=== PATIENT | male | born 1980 | race Caucasian/White ===

== ENCOUNTER 2016-10-22 21:48 | Emergency (ER) | payer BC, OTHER ==
[2016-10-22] MEDS ORDERED: SODIUM CHLORIDE 0.9% 1,000 ML IV STA (22:34)
[2016-10-22] MEDS ORDERED: RX INFO: IV CONTRAST WAS GIVEN 1 EACH MISC MISCELLANE PRN (22:51)
--- NOTE | 2016-10-22 23:01 | ED ---
Abdominal Pain HPI - General Chief Complaint: Abdominal Pain Stated Complaint: abdominal pain Time Seen by Provider: 10/22/16 22:34 Source: patient, RN notes reviewed Mode of arrival: ambulatory Limitations: no limitations - History of Present Illness Initial Comments: 36-year-old male presents emergency Department with chief complaint of abdominal pain. Patient states started earlier today and has progressively getting worse. He states it does wax and wane though. Patient states provides of left-sided his abdomen. This felt slightly nauseated no vomiting. Patient states that he had a bowel movement earlier today though is not passing any gas or stool after that. Patient states he does feel that he is very gassy. Patient denies fever, chills, chest pain, shortness of breath. Patient states that movement does make it worse at this time. Patient's had no prior scope including EGD or colonoscopy. Patient had no prior abdominal surgeries. - Related Data Home Medications Medication Instructions Recorded Confirmed Lisinopril [Zestril] 10 mg PO BID 07/15/15 10/22/16 Metoprolol Tartrate [Lopressor] 25 mg PO BID 07/15/15 10/22/16 Cholecalciferol [Vitamin D3] 1,000 unit PO DAILY 10/22/16 10/22/16 Garlic 1 tab PO DAILY 10/22/16 10/22/16 [place]-3 Fatty Acids/Fish Oil [Fish 1 cap PO DAILY 10/22/16 10/22/16 Oil 1,000 mg Softgel] Vortioxetine Hydrobromide 10 mg PO DAILY 10/22/16 10/22/16 [Trintellix] Previous Rx's Medication Instructions Recorded Hydrocodone/Acetaminophen [[place] 1 tab PO Q6HR PRN #20 tab 10/23/16 5-325] Omeprazole 40 mg PO DAILY #30 capsule. 10/23/16 Ondansetron Odt [Zofran Odt] 4 mg PO Q8HR PRN #10 tab 10/23/16 Allergies Allergy/AdvReac Type Severity Reaction Status Date / Time No Known Allergies Allergy Verified 10/22/16 22:55 Review of Systems ROS Statement: Those systems with pertinent positive or pertinent negative responses have been documented in the HPI. ROS Other: All systems not noted in ROS Statement are negative. Past Medical History Past Medical History: Coronary Artery Disease (CAD), Chest Pain / Angina, Hyperlipidemia History of Any Multi-Drug Resistant Organisms: None Reported Past Surgical History: Orthopedic Surgery Past Psychological History: No Psychological Hx Reported Smoking Status: Never smoker Past Alcohol Use History: Daily Past Drug Use History: None Reported General Exam Limitations: no limitations General appearance: alert, in no apparent distress Head exam: Present: atraumatic, normocephalic, normal inspection Neck exam: Present: normal inspection. Absent: tenderness, meningismus, lymphadenopathy Respiratory exam: Present: normal lung sounds bilaterally. Absent: respiratory distress, wheezes, rales, rhonchi, stridor Cardiovascular Exam: Present: regular rate, normal rhythm, normal heart sounds. Absent: systolic murmur, diastolic murmur, rubs, gallop, clicks GI/Abdominal exam: Present: soft, tenderness (Moderate left-sided abdominal tenderness), normal bowel sounds. Absent: distended, guarding, rebound, rigid Back exam: Absent: CVA tenderness (R), CVA tenderness (L) Neurological exam: Present: alert, oriented X3, CN II-XII intact Skin exam: Present: warm, dry, intact, normal color. Absent: rash Course Vital Signs 10/22/16 10/23/16 22:26 00:03 Temperature 98.2 F 98.9 F Pulse Rate 78 60 Respiratory 18 20 Rate Blood Pressure 154/105 130/85 O2 Sat by Pulse 98 100 Oximetry Medical Decision Making - Medical Decision Making 36-year-old male present emergency department for abdominal pain. Patient's CT shows duodenitis. There is no evidence of acute pancreatitis. Patient does complain of some GERD-like symptoms and there is concern of possible early ulcer. Patient was started on omeprazole 40 mg once daily. Patient will follow -up with Dr. iverson for EGD. Return parameters were discussed. - Lab Data Result diagrams: 10/22/16 23:06 10/22/16 23:06 Lab Results 10/22/16 10/22/16 10/22/16 Range/Units 23:06 23:06 23:06 WBC 7.4 (3.8-10.6) k/uL RBC 4.45 (4.30-5.90) m/uL Hgb 14.4 (13.0-17.5) gm/dL Hct 39.2 (39.0-53.0) % MCV 88.2 (80.0-100.0) fL MCH 32.3 (25.0-35.0) pg MCHC 36.7 (31.0-37.0) g/dL RDW 12.6 (11.5-15.5) % Plt Count 241 (150-450) k/uL Neutrophils % 64 % Lymphocytes % 24 % Monocytes % 7 % Eosinophils % 2 % Basophils % 1 % Neutrophils # 4.8 (1.3-7.7) k/uL Lymphocytes # 1.8 (1.0-4.8) k/uL Monocytes # 0.5 (0-1.0) k/uL Eosinophils # 0.1 (0-0.7) k/uL Basophils # 0.1 (0-0.2) k/uL Sodium 140 (137-145) mmol/L Potassium 4.1 (3.5-5.1) mmol/L Chloride 104 (98-107) mmol/L Carbon Dioxide 24 (22-30) mmol/L Anion Gap 12 mmol/L BUN 17 (9-20) mg/dL Creatinine 1.02 (0.66-1.25) mg/dL Est GFR (MDRD) Af Amer >60 (>60 ml/min/1.73 sqM) Est GFR (MDRD) Non-Af >60 (>60 ml/min/1.73 sqM) Glucose 101 H (74-99) mg/dL Plasma Lactic Acid Roger (0.7-2.0) mmol/L Calcium 9.8 (8.4-10.2) mg/dL Total Bilirubin 0.5 (0.2-1.3) mg/dL AST 22 (17-59) U/L ALT 29 (21-72) U/L Alkaline Phosphatase 102 (38-126) U/L Total Protein 7.7 (6.3-8.2) g/dL Albumin 4.7 (3.5-5.0) g/dL Amylase 50 (30-110) U/L Lipase 45 (23-300) U/L Urine Color Yellow Urine Appearance Clear (Clear) Urine pH 6.5 (5.0-8.0) Ur Specific Henry 1.014 (1.001-1.035) Urine Protein Negative (Negative) Urine Glucose (UA) Negative (Negative) Urine Ketones Negative (Negative) Urine Blood Negative (Negative) Urine Nitrite Negative (Negative) Urine Bilirubin Negative (Negative) Urine Urobilinogen <2.0 (<2.0) mg/dL Ur Leukocyte Esterase Negative (Negative) 10/22/16 Range/Units 23:06 WBC (3.8-10.6) k/uL RBC (4.30-5.90) m/uL Hgb (13.0-17.5) gm/dL Hct (39.0-53.0) % MCV (80.0-100.0) fL MCH (25.0-35.0) pg MCHC (31.0-37.0) g/dL RDW (11.5-15.5) % Plt Count (150-450) k/uL Neutrophils % % Lymphocytes % % Monocytes % % Eosinophils % % Basophils % % Neutrophils # (1.3-7.7) k/uL Lymphocytes # (1.0-4.8) k/uL Monocytes # (0-1.0) k/uL Eosinophils # (0-0.7) k/uL Basophils # (0-0.2) k/uL Sodium (137-145) mmol/L Potassium (3.5-5.1) mmol/L Chloride (98-107) mmol/L Carbon Dioxide (22-30) mmol/L Anion Gap mmol/L BUN (9-20) mg/dL Creatinine (0.66-1.25) mg/dL Est GFR (MDRD) Af Amer (>60 ml/min/1.73 sqM) Est GFR (MDRD) Non-Af (>60 ml/min/1.73 sqM) Glucose (74-99) mg/dL Plasma Lactic Acid Roger 1.0 (0.7-2.0) mmol/L Calcium (8.4-10.2) mg/dL Total Bilirubin (0.2-1.3) mg/dL AST (17-59) U/L ALT (21-72) U/L Alkaline Phosphatase (38-126) U/L Total Protein (6.3-8.2) g/dL Albumin (3.5-5.0) g/dL Amylase (30-110) U/L Lipase (23-300) U/L Urine Color Urine Appearance (Clear) Urine pH (5.0-8.0) Ur Specific Henry (1.001-1.035) Urine Protein (Negative) Urine Glucose (UA) (Negative) Urine Ketones (Negative) Urine Blood (Negative) Urine Nitrite (Negative) Urine Bilirubin (Negative) Urine Urobilinogen (<2.0) mg/dL Ur Leukocyte Esterase (Negative) Disposition Clinical Impression: Duodenitis, GERD (gastroesophageal reflux disease), Abdominal pain Disposition: HOME SELF-CARE Condition: Stable Instructions: Duodenitis (ED) Additional Instructions: Please return to the Emergency Department if symptoms worsen or any other concerns. Prescriptions: Hydrocodone/Acetaminophen [[place] 5-325] 1 tab PO Q6HR PRN #20 tab PRN Reason: Pain Omeprazole 40 mg PO DAILY #30 capsule. Ondansetron Odt [Zofran Odt] 4 mg PO Q8HR PRN #10 tab PRN Reason: Nausea Time of Disposition: 00:42
[2016-10-22 23:20] LABS: Basophils # (A) 0.1 k/uL (0-0.2); Basophils % (A) 1 %; CH 32.3; CHCM 36.8; Eosinophils # (A) 0.1 k/uL (0-0.7); Eosinophils % (A) 2 %; HCT 39.2 % (39.0-53.0); HDW 2.86; HGB 14.4 gm/dL (13.0-17.5); Luc # (Auto) 0.23; Luc % (Auto) 3; Lymphocytes # (A) 1.8 k/uL (1.0-4.8); Lymphocytes % (A) 24 %; MCH 32.3 pg (25.0-35.0); MCHC 36.7 g/dL (31.0-37.0); MCV 88.2 fL (80.0-100.0); Mean Platelet Volume 7.5; Monocytes # (A) 0.5 k/uL (0-1.0); Monocytes % (A) 7 %; Neutrophils # (A) 4.8 k/uL (1.3-7.7); Neutrophils % (A) 64 %; RBC 4.45 m/uL (4.30-5.90); RDW 12.6 % (11.5-15.5); WBC 7.4 k/uL (3.8-10.6); WBC (Perox) 7.13
[2016-10-22 23:28] LABS: ALT 29 U/L (21-72); AST 22 U/L (17-59); Alkaline Phosphatase 102 U/L (38-126); Amylase 50 U/L (30-110); Anion Gap 12 mmol/L; Blood Urea Nitrogen 17 mg/dL (9-20); Calcium 9.8 mg/dL (8.4-10.2); Carbon Dioxide 24 mmol/L (22-30); Chloride 104 mmol/L (98-107); Glucose 101 mg/dL (74-99); Non-African American GFR(MDRD) >60 (>60 ml/min/1.73 sqM); Potassium 4.1 mmol/L (3.5-5.1); Sodium 140 mmol/L (137-145); Total Bilirubin 0.5 mg/dL (0.2-1.3); Total Protein 7.7 g/dL (6.3-8.2)
[2016-10-22 23:33] LABS: Appearance,Urine Clear (Clear); Bilirubin,Urine Negative (Negative); Glucose,Urine (UA) Negative (Negative); Ketones,Urine Negative (Negative); Leukocyte Esterase,Urine Negative (Negative); Nitrite,Urine Negative (Negative); PH, Urine 6.5 (5.0-8.0); Protein,Urine Negative (Negative); Specific Gravity,Urine 1.014 (1.001-1.035); UA Billing (MACRO vs. MICRO) CHEM; Urobilinogen,Urine <2.0 mg/dL (<2.0)
[2016-10-23 00:05] VITALS: BP 130/85; PULSE 60; RESP 20; TEMP 98.9
[2016-10-23] MEDS ORDERED: MORPHINE SULFATE 4 MG/ML SYRINGE IVP STA (00:16)
[2016-10-23] MEDS ORDERED: ONDANSETRON 4 MG/2 ML VIAL IVP STA (00:16)
--- NOTE | 2016-10-23 00:17 | CT ---
EXAM: CT Abdomen and Pelvis With Intravenous Contrast. CLINICAL HISTORY: Reason: Pain TECHNIQUE: Axial computed tomography images of the abdomen and pelvis with intravenous contrast. CTDI is 22.3 mGy and DLP is 858 mGy-cm COMPARISON: No relevant prior studies available. FINDINGS: Lower thorax: Small hiatal hernia. ABDOMEN: Liver: Unremarkable. No mass. Gallbladder and bile ducts: Gallbladder is underdistended and appear grossly unremarkable. No calcified stones. No ductal dilation. Pancreas: Mild soft tissue stranding adjacent to the uncinate process and head of the pancreas. There is circumferential thickening of the descending portion of the duodenum abutting the pancreatic head. This may reflect duodenitis with adjacent reactive change. Focal pancreatitis with secondary reactive change in the adjacent duodenum can possibly give this appearance. Recommend correlation with laboratory values. No ductal dilation. Spleen: Unremarkable. No splenomegaly. Adrenals: Unremarkable. No mass. Kidneys and ureters: Unremarkable. No solid mass. No hydronephrosis. Stomach and bowel: Few scattered diverticula in the sigmoid colon. Mild retained stool seen throughout the large bowel. Appendix: Appendix not well visualized. PELVIS: Bladder: Mild thickening of the bladder wall likely due to underdistention. Reproductive: Unremarkable as visualized. ABDOMEN and PELVIS: Intraperitoneal space: No free fluid in the pelvis. No free air. Bones/joints: No acute fracture. No dislocation. Soft tissues: Unremarkable. Vasculature: Unremarkable. No abdominal aortic aneurysm. Lymph nodes: Small gastrohepatic ligament lymph node measuring 1.1 cm, nonspecific. IMPRESSION: Finding in the descending portion of the duodenum and adjacent pancreas which may reflect duodenitis with adjacent reactive change. Focal pancreatitis with reactive changes in the descending duodenum can give this appearance. Recommend clinical correlation and follow-up imaging as indicated. Prominent lymph node in the upper abdomen, probably reactive. Attention to this area on follow-up imaging
== END 2016-10-23 00:56 | disposition home or self-care (01) ==
LOC: EC 21:48
DX: K29.80 Duodenitis without bleeding (principal); K21.9 Gastro-esophageal reflux disease without esophagitis; I25.119 Atherosclerotic heart disease of native coronary artery with unspecified angina pectoris; Z79.899 Other long term (current) drug therapy
CPT/HCPCS: 36415; 80053; 82150; 83605; 83690; 85025; 81003; 74177; 99284; 96374; 96375; J2270; J2405; Q9967

== ENCOUNTER → 2020-02-16 | Outpatient (CLI) | payer BC ==
--- NOTE | 2020-02-19 08:02 | MM ---
Reason for exam: clinical finding. History: Took other hormone beginning at age 28. Physical Findings: Nurse did not find any significant physical abnormalities on exam. MG 3D Diag Mammo W/Cad IVANA Bilateral CC and MLO view(s) were taken. The breast tissue is almost entirely fat. There is no discrete abnormality including area of concern. These results were verbally communicated with the patient and result sheet given to the patient on 02/16/20. ASSESSMENT: Incomplete: need additional imaging evaluation, BI-RAD 0 RECOMMENDATION: Ultrasound of both breasts.
--- NOTE | 2020-02-19 08:04 | USB ---
Reason for exam: clinical finding. History: Took other hormone beginning at age 28. US Breast BILAT Right limited breast ultrasound including focal area of concern, retroareolar and axilla demonstrates a 1.7 x 2.2 x 1.5cm lymph node at the axilla. Left limited breast ultrasound including focal area of concern, retroareolar and axilla demonstrates a 06 x 0.5 x 0.4cm round solid, hyperechoic lipoma at 3 o'clock and a 2.2 x 1.5 x 1.2cm lymph node at the axilla. These results were verbally communicated with the patient and result sheet given to the patient on 02/16/20. ASSESSMENT: Benign, BI-RAD 2 RECOMMENDATION: Clinical management of both breasts. Manage patient on a clinical basis.
== END | disposition home or self-care (01) ==
LOC: RADMAMWWP 13:41
PROVIDERS: ATTEND Family Medicine
DX: N64.4 Mastodynia (principal); R92.8 Other abnormal and inconclusive findings on diagnostic imaging of breast
CPT/HCPCS: 77062; 77066

== ENCOUNTER → 2020-12-16 | Outpatient (CLI) | payer BC ==
--- NOTE | 2020-12-16 11:54 | USB ---
Reason for exam: clinical finding. History: Took other hormone beginning at age 28. Physical Findings: Nurse did not find any significant physical abnormalities on exam. US Breast BILAT Right limited breast ultrasound including focal area of concern, retroareolar and axilla demonstrates no cystic or solid lesion seen. Left limited breast ultrasound including focal area of concern, retroareolar and axilla demonstrates no cystic or solid lesion seen. These results were verbally communicated with the patient and result sheet given to the patient on 12/16/20. ASSESSMENT: Benign, BI-RAD 2 RECOMMENDATION: Clinical management of both breasts. Manage patient on a clinical basis.
== END | disposition home or self-care (01) ==
LOC: RADUSWWP 08:59
PROVIDERS: ATTEND Family Medicine
DX: N64.89 Other specified disorders of breast (principal)

== ENCOUNTER 2021-07-18 08:57 | Emergency (ER) | payer BC ==
[2021-07-18 09:03] VITALS: RESP 18; TEMP 98.3
[2021-07-18] MEDS ORDERED: DIPH,PERTUS(ACELL)TETVAC-LF 0.5 ML VIAL IM ONE (09:11)
[2021-07-18] MEDS ORDERED: ceFAZolin 1,000 MG VIAL (IM USE) IM STA (09:28)
[2021-07-18] MEDS ORDERED: LIDOCAINE 1% INJ 10MG/ML (20 ML MDV) SQ ONE (09:28)
--- NOTE | 2021-07-18 09:29 | ED ---
General Adult HPI - General Chief complaint: Extremity Injury, Upper Stated complaint: thumb laceration Time Seen by Provider: 07/18/21 09:10 Source: patient, RN notes reviewed Mode of arrival: ambulatory Limitations: no limitations - History of Present Illness Initial comments: 41-year-old male with a past medical history of hyperlipidemia, hypertension presents to the emergency room for left thumb injury. Patient pinched his thumb between 2 heavy pieces of steel. States that his thumb was hanging off. Patient does not want anything for pain at this time. Tetanus is up-to-date.Patient has no other complaints at this time including shortness of breath, chest pain, abdominal pain, nausea or vomiting, headache, or visual changes. - Related Data Home Medications Medication Instructions Recorded Confirmed Metoprolol Tartrate [Lopressor] 25 mg PO BID 07/15/15 10/22/16 lisinopriL [Zestril] 10 mg PO BID 07/15/15 10/22/16 Cholecalciferol [Vitamin D3] 1,000 unit PO DAILY 10/22/16 10/22/16 Garlic 1 tab PO DAILY 10/22/16 10/22/16 [place]-3 Fatty Acids/Fish Oil [Fish 1 cap PO DAILY 10/22/16 10/22/16 Oil 1,000 mg Softgel] Vortioxetine Hydrobromide 10 mg PO DAILY 10/22/16 10/22/16 [Trintellix] Previous Rx's Medication Instructions Recorded Hydrocodone/Acetaminophen [[place] 1 tab PO Q6HR PRN #20 tab 10/23/16 5-325] Omeprazole 40 mg PO DAILY #30 capsule. 10/23/16 Ondansetron Odt [Zofran Odt] 4 mg PO Q8HR PRN #10 tab 10/23/16 Cephalexin [Keflex] 500 mg PO Q6HR 7 Days #28 cap 07/18/21 Allergies Allergy/AdvReac Type Severity Reaction Status Date / Time No Known Allergies Allergy Verified 07/18/21 08:59 Review of Systems ROS Statement: Those systems with pertinent positive or pertinent negative responses have been documented in the HPI. ROS Other: All systems not noted in ROS Statement are negative. Past Medical History Past Medical History: Coronary Artery Disease (CAD), Chest Pain / Angina, H yperlipidemia, Hypertension History of Any Multi-Drug Resistant Organisms: None Reported Past Surgical History: Heart Catheterization With Stent, Orthopedic Surgery Past Psychological History: Depression Smoking Status: Never smoker Past Alcohol Use History: Daily Past Drug Use History: None Reported General Exam Limitations: no limitations General appearance: alert, in no apparent distress, anxious Head exam: Present: atraumatic Eye exam: Present: normal appearance, PERRL, EOMI. Absent: scleral icterus, conjunctival injection ENT exam: Present: normal exam, mucous membranes moist Neck exam: Present: normal inspection, full ROM. Absent: tenderness Respiratory exam: Present: normal lung sounds bilaterally. Absent: respiratory distress, wheezes Cardiovascular Exam: Present: regular rate, normal rhythm, normal heart sounds Extremities exam: Present: normal capillary refill (L thumb), other (Patient has of laceration and partial avulsion of the distal aspect of the distal phalanx of the left thumb involving the nailbed). Absent: full ROM (Some mild diminished flexion of the IP joint of the left thumb. MCP joint has full range of motion.) Course Vital Signs 07/18/21 08:59 Temperature 98.3 F Pulse Rate 78 Respiratory 18 Rate Blood Pressure 151/97 O2 Sat by Pulse 98 Oximetry Procedures - Laceration Laceration #1 Consent Obtained: verbal consent Indication: laceration Site: hand Size (cm): 3 Description: avulsion Depth: [id number] Anesthetic Used: lidocaine 1% Anesthesia Technique: nerve block Amount (mls): 6 Pre-repair: wound explored, irrigated extensively Type of Sutures: nylon (5), vicryl (3) Size of Sutures: 4-0 Technique: simple, interrupted Patient Tolerated Procedure: well, no complications Medical Decision Making - Medical Decision Making xr was obtained which showed a subungual tuft fracture of the left first digit. The wound was irrigated thoroughly with saline pressure irrigation and sterile water. The nail was removed. Laceration was repaired using simple interrupted sutures. I did use 3 nylon sutures and then 3 absorbable sutures in the nail bed. I was able to tack the nail back in place. She was given Ancef and tetanus. Case was discussed with Leigh Ann from . They will follow up with him closely next week. He will call today for an appointment. He will take antibiotics and pain medicine. He will return here for any worsening symptoms. Disposition Clinical Impression: Laceration of thumb, Avulsion of nail, Open fracture of thumb Disposition: HOME SELF-CARE Condition: Good Instructions (If sedation given, give patient instructions): Laceration (ED), Care For Your Stitches (ED) Additional Instructions: Please keep the wound clean with soap and water. Apply antibiotic ointment. Follow up with orthopedics. Call today for an appointment, they would like to see you early next week. Return here for any worsening symptoms. Take medications as directed. Prescriptions: Cephalexin [Keflex] 500 mg PO Q6HR 7 Days #28 cap Is patient prescribed a controlled substance at d/c from ED?: No Referrals: Jose Angel Damico DO [Primary Care Provider] - 1-2 days Elier Storey MD [STAFF PHYSICIAN] - 1-2 days Time of Disposition: 11:02
--- NOTE | 2021-07-18 09:48 | XR ---
EXAMINATION TYPE: XR hand complete LT DATE OF EXAM: 07/18/2021 CLINICAL HISTORY: pain TECHNIQUE: Frontal, lateral and oblique images of the left hand are obtained. COMPARISON: None. FINDINGS: There is subungual tuft fracture noted of the first digit. Soft tissue deformity noted. No additional fracture seen. IMPRESSION: Subungual tuft fracture of the left first digit.
[2021-07-18] MEDS ORDERED: CEPHALEXIN 500MG STARTER PACK 4 CAP BTL PO STA (10:55)
[2021-07-18] MEDS ORDERED: ACET/COD 300 MG/30 MG STARTER PACK 6 TAB BTL PO STA (10:55)
[2021-07-18 11:14] VITALS: BP 125/84; PULSE 88
== END 2021-07-18 11:18 | disposition home or self-care (01) ==
LOC: EC 08:57
DX: S62.502A Fracture of unspecified phalanx of left thumb, initial encounter for closed fracture (principal); I10 Essential (primary) hypertension; I25.10 Atherosclerotic heart disease of native coronary artery without angina pectoris; Z23 Encounter for immunization; Z79.899 Other long term (current) drug therapy; W23.1XXA Caught, crushed, jammed, or pinched between stationary objects, initial encounter; Y92.009 Unspecified place in unspecified non-institutional (private) residence as the place of occurrence of the external cause
CPT/HCPCS: 73130; 90715; 99283; 12042; 90471; 96372; J0690; J2001

== ENCOUNTER 2023-06-06 20:23 | Emergency (ER) | payer BC ==
--- NOTE | 2023-06-06 21:27 | ED ---
General Adult HPI - General Source: patient, RN notes reviewed <Marsha Mcduffie - Last Filed: 06/06/23 21:27> <Delmis Winslow - Last Filed: 06/07/23 00:44> - General Stated complaint: R Arm Swelling Post Op Time Seen by Provider: 06/06/23 21:26 - History of Present Illness Initial comments: 42-year-old male presents to the emergency department chief complaint of right elbow pain and swelling. He states that he recently had surgery for a fracture just distal to the right elbow about one week ago. He states that he noticed some discomfort this morning when he woke up. He states that this is progressing up the day and he also notes more swelling and redness this afternoon. He states that the surgery was done in [place]. (Marsha Mcduffie) Patient is a 42-year-old male who presents to the emergency department for right elbow swelling. Patient had surgery on his right elbow on 05/21 at [facility]. He woke up this morning with redness and swelling around the wound. He has mild pain around the wound. No fever, chills, nausea, vomiting. No history of DVT. Patient has follow-up with his surgeon in the morning. (Delmis Winslow) - Related Data Home Medications Medication Instructions Recorded Confirmed Metoprolol Tartrate [Lopressor] 25 mg PO BID 07/15/15 10/22/16 lisinopriL [Zestril] 10 mg PO BID 07/15/15 10/22/16 Cholecalciferol [Vitamin D3] 1,000 unit PO DAILY 10/22/16 10/22/16 Garlic 1 tab PO DAILY 10/22/16 10/22/16 Guy-3 Fatty Acids/Fish Oil [Fish 1 cap PO DAILY 10/22/16 10/22/16 Oil 1,000 mg Softgel] Vortioxetine Hydrobromide 10 mg PO DAILY 10/22/16 10/22/16 [Trintellix] Previous Rx's Medication Instructions Recorded Hydrocodone/Acetaminophen [[place] 1 tab PO Q6HR PRN #20 tab 10/23/16 5-325] Omeprazole 40 mg PO DAILY #30 capsule. 10/23/16 Ondansetron Odt [Zofran Odt] 4 mg PO Q8HR PRN #10 tab 10/23/16 Cephalexin [Keflex] 500 mg PO Q6HR 7 Days #28 cap 07/18/21 Ibuprofen [Motrin] 800 mg PO Q8HR PRN #30 tab 05/07/23 Cephalexin [Keflex] 500 mg PO Q6HR 1 Days #40 cap 06/07/23 Allergies Allergy/AdvReac Type Severity Reaction Status Date / Time No Known Allergies Allergy Verified 06/06/23 21:28 Review of Systems ROS Other: All systems not noted in ROS Statement are negative. <Marsha Mcduffie - Last Filed: 06/06/23 21:27> ROS Other: All systems not noted in ROS Statement are negative. <Delmis Winslow - Last Filed: 06/07/23 00:44> ROS Statement: Those systems with pertinent positive or pertinent negative responses have been documented in the HPI. Past Medical History Past Medical History: Coronary Artery Disease (CAD), Chest Pain / Angina, Hyperlipidemia, Hypertension History of Any Multi-Drug Resistant Organisms: None Reported Past Surgical History: Heart Catheterization With Stent, Orthopedic Surgery Past Psychological History: Depression Smoking Status: Never smoker Past Alcohol Use History: Daily Past Drug Use History: None Reported <Marsha Mcduffie - Last Filed: 06/06/23 21:27> General Exam <Marsha Mcduffie - Last Filed: 06/06/23 21:27> General appearance: alert Head exam: Present: atraumatic, normocephalic, normal inspection Eye exam: Present: normal appearance, PERRL, EOMI. Absent: scleral icterus, conjunctival injection, periorbital swelling Respiratory exam: Present: normal lung sounds bilaterally. Absent: respiratory distress, wheezes, rales, rhonchi, stridor Cardiovascular Exam: Present: regular rate, normal rhythm, normal heart sounds. Absent: systolic murmur, diastolic murmur, rubs, gallop, clicks Extremities exam: Present: other (surgical incision erythematous and swollen no fluctuance or drainable abscess. erythema and swelling limited to surgical wound. sutures in place. Neurovascularly intact) Neurological exam: Present: alert Psychiatric exam: Present: normal affect, normal mood Skin exam: Present: warm, dry, intact, normal color. Absent: rash <Delmis Winslow - Last Filed: 06/07/23 00:44> - General Exam Comments Initial Comments: Visual Physical Exam Vital signs reviewed General: Well-appearing, nontoxic, no acute distress. Head: Normocephalic, atraumatic Eyes: PERRLA, EOMI ENT: Airway patent Chest: Nonlabored breathing Skin: No visual rash, normal skin tone, erythema and swelling to right arm incision site Neuro: Alert and oriented 3 Musculoskeletal: No gross abnormalities (Marsha Mcduffie) Course Vital Signs 06/06/23 21:22 Temperature 98.5 F Pulse Rate 76 Respiratory 18 Rate Blood Pressure 143/97 O2 Sat by Pulse 98 Oximetry Medical Decision Making <Marsha Mcduffie - Last Filed: 06/06/23 21:27> - Lab Data Result diagrams: 06/06/23 22:55 06/06/23 22:55 <Delmis Winslow - Last Filed: 06/07/23 00:44> - Medical Decision Making I preformed the quick note portion of this chart. Electronically signed by Marhsa Mcduffie PA-C (Marsha Mcduffie) Was pt. sent in by a medical professional or institution (RONEL Reynolds, FORM COVERER, urgent care, hospital, or retirement...) When possible be specific @ -No Did you speak to anyone other than the patient for history (EMS, parent, family, police, friend...)? What history was obtained from this source @ -No Did you review nursing and triage notes (agree or disagree)? Why? @ -I reviewed and agree with nursing and triage notes Were old charts reviewed (outside hosp., previous admission, EMS record, old EKG, old radiological studies, urgent care reports/EKG's, retirement records)? Report findings @ -No old charts were reviewed Differential Diagnosis (chest pain, altered mental status, abdominal pain women, abdominal pain men, vaginal bleeding, weakness, fever, dyspnea, syncope, headache, dizziness, GI bleed, back pain, seizure, CVA, palpatations, mental health)? @ -Cellulitis abscess, DVT EKG interpreted by me (3pts min.). @ -As above X-rays interpreted by me (1pt min.). @ -None done CT interpreted by me (1pt min.). @ -None done U/S interpreted by me (1pt. min.). @ -None done What testing was considered but not performed or refused? (CT, X-rays, U/S, labs)? Why? @ -[None] What meds were considered but not given or refused? Why? @ -[None] Did you discuss the management of the patient with other professionals (henry borden i.e. , PA, FORM COVERER, lab, RT, psych nurse, social media editor, designer writer, teacher, family preservation officer, outpatient case manager)? Give summary @ -[No] Was smoking cessation discussed for >3mins.? @ -[No] Was critical care preformed (if so, how long)? @ -[No] Were there social determinants of health that impacted care today? How? (Homelessness, low income, unemployed, alcoholism, drug addiction, transpo rtation, low edu. Level, literacy, decrease access to med. care, halfway, rehab)? @ -[No] Was there de-escalation of care discussed even if they declined (Discuss DNR or withdrawal of care, Hospice)? DNR status @ -[No] What co-morbidities impacted this encounter? (DM, HTN, Smoking, COPD, CAD, Cancer, CVA, ARF, Chemo, Hep., AIDS, mental health diagnosis, sleep apnea, morbid obesity)? @Right elbow surgery Was patient admitted / discharged? Hospital course, mention meds given and route, prescriptions, significant lab abnormalities, going to OR and other pertinent info. @ -42-year-old presenting with surgical site infection after right elbow surgery. No evidence of abscess. No leukocytosis, fever, vomiting. Patient in stable medical condition for discharge with oral antibiotics. He will follow up with a surgeon in the morning as planned. Undiagnosed new problem with uncertain prognosis? @ -[No] Drug Therapy requiring intensive monitoring for toxicity (Heparin, Nitro, Insulin, Cardizem)? @ -[No] Were any procedures done? @ -[No] Diagnosis/symptom? @Wound infection Acute, or Chronic, or Acute on Chronic? @Acute Uncomplicated (without systemic symptoms) or Complicated (systemic symptoms)? @ -Uncomplicated Side effects of treatment? @ -[No] Exacerbation, Progression, or Severe Exacerbation? @ -[No] Poses a threat to life or bodily function? How? (Chest pain, [place], [place], pneumonia, PE, COPD, DKA, ARF, appy, cholecystitis, CVA, Diverticulitis, Homicidal, Suicidal, threat to staff... and all critical care pts) @ -[No] Dr. prieto is my attending (Delmis Winslow) - Lab Data Lab Results 06/06/23 06/06/23 06/06/23 Range/Units 22:55 22:55 22:55 WBC 6.5 (3.8-10.6) k/uL RBC 4.06 L (4.30-5.90) m/uL Hgb 13.2 (13.0-17.5) gm/dL Hct 36.6 L (39.0-53.0) % MCV 90.2 (80.0-100.0) fL MCH 32.5 (25.0-35.0) pg MCHC 36.1 (31.0-37.0) g/dL RDW 12.7 (11.5-15.5) % Plt Count 362 (150-450) k/uL MPV 7.5 Neutrophils % 55 % Lymphocytes % 34 % Monocytes % 4 % Eosinophils % 4 % Basophils % 1 % Neutrophils # 3.6 (1.3-7.7) k/uL Lymphocytes # 2.2 (1.0-4.8) k/uL Monocytes # 0.3 (0-1.0) k/uL Eosinophils # 0.2 (0-0.7) k/uL Basophils # 0.1 (0-0.2) k/uL Sodium 139 (137-145) mmol/L Potassium 4.3 (3.5-5.1) mmol/L Chloride 105 (98-107) mmol/L Carbon Dioxide 17 L (22-30) mmol/L Anion Gap 17 mmol/L BUN 14 (9-20) mg/dL Creatinine 1.13 (0.66-1.25) mg/dL Est GFR (CKD-EPI)AfAm >90 (>60 ml/min/1.73 sqM) Est GFR (CKD-EPI)NonAf 80 (>60 ml/min/1.73 sqM) Glucose 104 H (74-99) mg/dL Plasma Lactic Acid Roger 1.9 (0.7-2.0) mmol/L Calcium 9.7 (8.4-10.2) mg/dL Total Bilirubin 0.5 (0.2-1.3) mg/dL AST 33 (17-59) U/L ALT 30 (4-49) U/L Alkaline Phosphatase 140 H (38-126) U/L Total Protein 7.6 (6.3-8.2) g/dL Albumin 4.6 (3.5-5.0) g/dL Disposition <Marsha Mcduffie - Last Filed: 06/06/23 21:27> Is patient prescribed a controlled substance at d/c from ED?: No <Delmis Winslow - Last Filed: 06/07/23 00:44> Clinical Impression: Wound infection Disposition: HOME SELF-CARE Condition: Good Instructions (If sedation given, give patient instructions): Wound Infection (ED) Additional Instructions: Keep wound clean and dry. Take antibiotic as directed. Follow-up with surgeon tomorrow as planned. Return to the emergency department if you experience new, concerning, or worsening symptoms. Prescriptions: Cephalexin [Keflex] 500 mg PO Q6HR 1 Days #40 cap Referrals: Jose Angel Damico DO [Primary Care Provider] - 1-2 days
[2023-06-06 23:27] LABS: Basophils # (A) 0.1 k/uL (0-0.2); Basophils % (A) 1 %; Eosinophils # (A) 0.2 k/uL (0-0.7); Eosinophils % (A) 4 %; HCT 36.6 % (39.0-53.0); HGB 13.2 gm/dL (13.0-17.5); Lymphocytes # (A) 2.2 k/uL (1.0-4.8); Lymphocytes % (A) 34 %; MCH 32.5 pg (25.0-35.0); MCHC 36.1 g/dL (31.0-37.0); MCV 90.2 fL (80.0-100.0); Mean Platelet Volume 7.5; Monocytes # (A) 0.3 k/uL (0-1.0); Monocytes % (A) 4 %; Neutrophils # (A) 3.6 k/uL (1.3-7.7); Neutrophils % (A) 55 %; Platelet Count 362 k/uL (150-450); RBC 4.06 m/uL (4.30-5.90); RDW 12.7 % (11.5-15.5); WBC 6.5 k/uL (3.8-10.6)
[2023-06-06 23:59] LABS: ALT 30 U/L (4-49); African American GFR (CKD) >90 (>60 ml/min/1.73 sqM); Albumin 4.6 g/dL (3.5-5.0); Anion Gap 17 mmol/L; Blood Urea Nitrogen 14 mg/dL (9-20); Calcium 9.7 mg/dL (8.4-10.2); Carbon Dioxide 17 mmol/L (22-30); Chloride 105 mmol/L (98-107); Glucose 104 mg/dL (74-99); Non-African American GFR(CKD) 80 (>60 ml/min/1.73 sqM); Sodium 139 mmol/L (137-145); Total Bilirubin 0.5 mg/dL (0.2-1.3); Total Protein 7.6 g/dL (6.3-8.2)
[2023-06-07 00:01] LABS: AST 33 U/L (17-59); Alkaline Phosphatase 140 U/L (38-126); Potassium 4.3 mmol/L (3.5-5.1)
[2023-06-07] MEDS ORDERED: CEPHALEXIN 500 MG CAP PO STA (00:27)
[2023-06-07] MEDS ORDERED: cefTRIAXone IN SWFI 1,000 MG/10 ML SYRINGE IVP STA (00:29)
[2023-06-07 00:49] VITALS: BP 115/93; PULSE 62; RESP 19; TEMP 98.4
== END 2023-06-07 00:45 | disposition home or self-care (01) ==
LOC: EC 20:23
DX: T81.49XA Infection following a procedure, other surgical site, initial encounter (principal); I10 Essential (primary) hypertension; I25.10 Atherosclerotic heart disease of native coronary artery without angina pectoris; Z79.899 Other long term (current) drug therapy
CPT/HCPCS: 36415; 80053; 83605; 85025; 96374; 99283